=== PATIENT | female | born 1960 | race Caucasian/White ===

== ENCOUNTER 2023-03-02 12:27 | Inpatient (IN) | payer OTHER ==
[2023-03-02] MEDS ORDERED: NOREPINEPHRINE 8 MG/250 ML-D5W 250 ML ONE (12:31)
[2023-03-02] MEDS ORDERED: fentaNYL 50 mcg/mL 1 mL Vial ONE ×4 (12:31→13:38)
[2023-03-02] MEDS ORDERED: Midazolam HCl 5 mg/ml Vial ONE (12:55)
[2023-03-02 13:04] LABS: #Eosinphils 0.1 thou/uL (0.0-0.7); #Monocytes 0.6 thou/uL (0.11-0.59); #Neutrophils 10.2 thou/uL (1.40-6.50); %Basophils 0.1 % (0.0-1.0); %Eosinophils 0.6 % (0.0-10.0); %Lymphocytes 4.4 % (21.0-51.0); %Monocytes 4.8 % (0.0-10.0); Hematocrit 43.6 % (36.0-47.0); Hemoglobin 13.3 g/dL (12.0-16.0); Mean Corpuscular HGB CONC 30.5 g/dL (32.0-36.0); Mean Corpuscular Hemoglobin 32.8 pg (27.0-31.0); Mean Corpuscular Volume 107.7 fl (78.0-98.0); Mean Platelet Volume 10.6 fL (7.4-10.4); Platelet Count 133 10x3/uL (130-400); RBC Distribution Width 15.4 % (11.5-14.5); Red Blood Cell (RBC) Count 4.05 mill/uL (4.20-5.40); White Blood Cell (WBC) Count 11.5 10x3/uL (4.8-10.8)
[2023-03-02 13:25] LABS: ALT (SGPT) 23 U/L (8-55); AST (SGOT) 28 U/L (5-34); Albumin 4.1 g/dL (3.4-4.8); Alkaline Phosphatase 207 U/L (40-110); Anion Gap 23 mmol/L (10-20); BUN (Urea Nitrogen) 67 mg/dL (9.8-20.1); Bilirubin, Total 0.7 mg/dL (0.2-1.2); Calc. Creatinine Clearance 0 mL/min (70-130); Carbon Dioxide 22 mmol/L (23-31); Chloride 96 mmol/L (98-107); Estimated GFR 5; Globulin 3.6 g/dL (2.4-3.5); Glucose 115 mg/dL (80-115); Magnesium 2.3 mg/dL (1.6-2.6); Potassium 5.8 mmol/L (3.5-5.1); Protein, Total 7.7 g/dL (5.8-8.1); Sodium 135 mmol/L (136-145)
[2023-03-02 13:28] LABS: Troponin I 0.181 ng/mL (< 0.028)
[2023-03-02] MEDS ORDERED: Fentanyl CADD 100 ML IV SCH ×2 (13:30→15:45)
[2023-03-02 13:32] LABS: Bilirubin Negative (Negative); Blood, Urine 2+ (Negative); CAUTI Indications for Culture Fever or rigors; Clarity Extra Turbid (Clear); Glucose, Urine (Dipstick) Normal (Negative); Ketone, Urine Negative (Negative); Leukocyte 500 Leu/uL (Negative); Nitrite Negative (Negative); Protein, Urine (Dipstick) 300 mg/dL (Neg-Trace); Urobilinogen Normal mg/dL (Less than 2); pH, Urine 6.5 (5.0-9.0)
[2023-03-02 13:35] LABS: INR-International Normal Ratio 1.1; Prothrombin Time 14.3 sec (12.0-14.7)
[2023-03-02 13:36] LABS: PTT 34.6 sec (22.9-36.1)
[2023-03-02 13:39] LABS: Bacteria/HPF 2+ HPF (None Seen); WBC/HPF 21-50 HPF (0-3)
[2023-03-02 13:40] LABS: Urine Culture Reflex Yes Yes
[2023-03-02 13:41] LABS: SARS-CoV-2 NAA Rapid Test Not Detected (NotDetected)
[2023-03-02 13:43] LABS: Actual Bicarbonate (HCO3a) 20.2 mEq/L (22-28); Analyzer IN Cardio ER; Base Excess (BEa) -8.7 mEq/L (-2.0 to +3.0); CO2 Tension 56.3 mmHg (35.0-45.0); Calcium, Ionized (arterial) 1.13 mmol/L (1.12-1.30); Carboxyhemoglobin (COHb) 3.1 gm% (0.0-3.0); Hematocrit-ABG 40 % (36.0-47.0); Hemoglobin (Hb) 13.6 g/dL (12.0-16.0)
[2023-03-02 14:20] LABS: O2 Tension (PaO2), arterial 55.3 mmHg (> 80.0); pH, Arterial 7.173 (7.35-7.45)
[2023-03-02 14:21] LABS: ALV-art Gradient 195.175 mmHg (0-20); Potassium - ABG Lab 6.05 mmol/L (3.70-5.30); Puncture Site RRA
[2023-03-02] MEDS ORDERED: Insulin Regular 300 UNITS/3 ML VIAL ONE (14:27)
[2023-03-02] MEDS ORDERED: Calcium Chloride 1 GM/10 ML Abboject SYRINGE ONE (14:27)
[2023-03-02] MEDS ORDERED: Iopamidol-370 76% 500 ML MDV (1 ML CHARGE) ONE (14:30)
[2023-03-02] MEDS ORDERED: Vancomycin 1 GM/200 ML (FROZEN) BAG ONE (14:42)
[2023-03-02] MEDS ORDERED: Dextrose 50% Abboject 50 ML SYRINGE SLOW IVP SCH (14:45)
[2023-03-02] MEDS ORDERED: Sodium Chloride 0.9% 100 ML ONE (14:49)
[2023-03-02] MEDS ORDERED: Piperacillin/Tazobactam 3.375 GM VIAL ONE (14:49)
[2023-03-02] MEDS ORDERED: Oseltamivir 6 MG/ML ORAL SUSP PER TUBE SCH (15:00)
[2023-03-02] MEDS ORDERED: Sodium Bicarb 50 MEQ/50 ML VIAL IVP SCH (15:00)
[2023-03-02] MEDS ORDERED: HumaLOG 300 UNITS/3 ML VIAL SC PRN ×2 (15:18)
[2023-03-02] MEDS ORDERED: Ipratropium/Albuterol 3 ML NEB NEB PRN (15:18)
[2023-03-02] MEDS ORDERED: NOREPINEPHRINE 8 MG/250 ML-D5W 250 ML IVPB PRN (15:18)
[2023-03-02] MEDS ORDERED: Acetaminophen 650 MG Suppository PR PRN (15:18)
[2023-03-02] MEDS ORDERED: Electrolyte Replacement Protocol 1 EACH IVPB ONE (15:18)
[2023-03-02] MEDS ORDERED: Ventilator Sedation Protocol 1 EACH FS SCH (15:30)
[2023-03-02] MEDS ORDERED: Acetaminophen 650 MG Suppository ONE (15:39)
[2023-03-02] MEDS ORDERED: Fentanyl BOLUS 250 ML IVPB PRN (15:45)
[2023-03-02] MEDS ORDERED: Lorazepam 2 MG/ML VIAL SLOW IVP PRN (15:45)
[2023-03-02] MEDS ORDERED: Morphine 2 MG/ML VIAL SLOW IVP PRN (15:45)
[2023-03-02] MEDS ORDERED: DISCONTINUE PREVIOUS NARCOTIC PAIN MEDICATIONS AND BENZODIAZEPINES FS SCH (15:45)
[2023-03-02] MEDS ORDERED: Propofol 1,000 MG/100 ML VIAL IV PRN (15:45)
[2023-03-02] MEDS ORDERED: Propofol BOLUS 1,000 MG/100 ML VIAL IV PRN (15:45)
[2023-03-02] MEDS ORDERED: Piperacillin/Tazobactam 3.375 GM in Sodium Chloride 0.9% 100 ML IVPB SCH (17:15)
[2023-03-02] MEDS: Ipratropium/Albuterol 3 ML NEB NEB SCH ×2 (18:24→22:13)
[2023-03-02] MEDS: methylPREDNISolone Sod Succ 40 MG VIAL IVP SCH (18:24)
[2023-03-02 20:00] LABS: HBSAg Index 0.19 S/CO (0-0.99); Hep B Core Total Ab Non-Reactive (NonReactive); Hep B Surf Ag Non-Reactive S/CO (NonReactive); Hep C IgG Ab Non-Reactive S/CO (NonReactive); Hep C Index 0.19 S/CO (0-0.79)
[2023-03-02 20:01] LABS: Troponin I 0.735 ng/mL (< 0.028)
[2023-03-02 20:11] LABS: Bilirubin Negative (Negative); Blood, Urine Moderate (Negative); Glucose, Urine (Dipstick) Negative (Negative); Ketone, Urine Negative (Negative); Leukocyte Moderate (Negative); Nitrite Negative (Negative); Protein, Urine (Dipstick) 100 mg/dL (Neg-Trace); Urobilinogen 0.2 mg/dL (Less than 2)
[2023-03-02 20:16] LABS: HBSAB Concentration 43.61 mIU/mL; Hep B Surf AB Reactive (NonReactive)
[2023-03-02 20:18] LABS: Clarity Hazy (Clear)
[2023-03-02 20:23] LABS: CAUTI Indications for Culture Fever or rigors; WBC/HPF 21-50 HPF (0-3)
[2023-03-02 20:24] LABS: Squamous Epithelial 0-3 HPF (0-3); Transitional Epithelial 0-3 HPF (None Seen)
[2023-03-02 20:25] LABS: Bacteria/HPF 2+ HPF (None Seen); Yeast-Budding Rare HPF (None Seen)
[2023-03-02 20:26] LABS: Other Microscopic Description Less than 2 mL rec'd
[2023-03-02] MEDS ORDERED: Vancomycin Dialysis Sliding Scale (Wt > 99) FS SCH (20:30)
[2023-03-02] MEDS ORDERED: Famotidine/PF 20 mg/2ml Vial SLOW IVP SCH (21:00)
[2023-03-02] MEDS: Heparin 5,000 UNITS/ML VIAL SC SCH (21:39)
[2023-03-02] MEDS: Piperacillin/Tazobactam 3.375 GM in Sodium Chloride 0.9% 100 ML IVPB SCH (21:39)
[2023-03-03 00:03] LABS: Troponin I 0.887 ng/mL (< 0.028)
[2023-03-03] MEDS: methylPREDNISolone Sod Succ 40 MG VIAL IVP SCH ×5 (01:29→23:51)
[2023-03-03] MEDS ORDERED: Vancomycin (BATCH) 1.75 GM in Premix 1 BAG IVPB SCH (02:00)
[2023-03-03] MEDS: Ipratropium/Albuterol 3 ML NEB NEB SCH ×6 (02:19→22:00)
[2023-03-03 06:38] LABS: #Monocytes 0.5 thou/uL (0.11-0.59); #Neutrophils 6.1 thou/uL (1.40-6.50); %Basophils 0.3 % (0.0-1.0); %Eosinophils 0.1 % (0.0-10.0); %Lymphocytes 9.2 % (21.0-51.0); %Monocytes 6.8 % (0.0-10.0); %Neutrophils 83.2 % (42.0-75.0); Hemoglobin 12.2 g/dL (12.0-16.0); Mean Corpuscular Hemoglobin 32.7 pg (27.0-31.0); Mean Platelet Volume 10.4 fL (7.4-10.4); Platelet Count 132 10x3/uL (130-400); RBC Distribution Width 14.9 % (11.5-14.5); Red Blood Cell (RBC) Count 3.73 mill/uL (4.20-5.40); White Blood Cell (WBC) Count 7.4 10x3/uL (4.8-10.8)
[2023-03-03 06:47] LABS: Mean Corpuscular Volume 99.2 fl (78.0-98.0)
[2023-03-03 07:02] LABS: ALT (SGPT) 22 U/L (8-55); AST (SGOT) 29 U/L (5-34); Albumin 3.5 g/dL (3.4-4.8); Alkaline Phosphatase 169 U/L (40-110); Anion Gap 22 mmol/L (10-20); BUN (Urea Nitrogen) 44 mg/dL (9.8-20.1); Bilirubin, Total 0.7 mg/dL (0.2-1.2); Calc. Creatinine Clearance 16 mL/min (70-130); Calcium 9.2 mg/dL (7.8-10.44); Carbon Dioxide 21 mmol/L (23-31); Chloride 95 mmol/L (98-107); Estimated GFR 8; Globulin 3.2 g/dL (2.4-3.5); Glucose 141 mg/dL (80-115); Potassium 3.7 mmol/L (3.5-5.1); Protein, Total 6.7 g/dL (5.8-8.1); Sodium 134 mmol/L (136-145)
[2023-03-03 07:09] LABS: CO2 Tension 34.9 mmHg (35.0-45.0); Calcium, Ionized (arterial) 1.14 mmol/L (1.12-1.30); Carboxyhemoglobin (COHb) 1.3 gm% (0.0-3.0); Hematocrit-ABG 37 % (36.0-47.0); Hemoglobin (Hb) 12.6 g/dL (12.0-16.0); O2 Tension (PaO2), arterial 124.4 mmHg (> 80.0); Potassium - ABG Lab 3.78 mmol/L (3.70-5.30); pH, Arterial 7.417 (7.35-7.45)
[2023-03-03 07:11] LABS: ALV-art Gradient 117.175 mmHg (0-20); Puncture Site Arterial Line
[2023-03-03 07:11] LABS: Troponin I 0.734 ng/mL (< 0.028)
[2023-03-03] MEDS ORDERED: Albuterol 1.25 MG (3 mL) NEB NEB PRN (07:51)
[2023-03-03] MEDS: Piperacillin/Tazobactam 3.375 GM in Sodium Chloride 0.9% 100 ML IVPB SCH ×2 (08:02→21:02)
[2023-03-03] MEDS: Heparin 5,000 UNITS/ML VIAL SC SCH ×3 (08:04→21:03)
[2023-03-03] MEDS ORDERED: Oseltamivir 75 MG CAP PO SCH (09:00)
[2023-03-03] MEDS ORDERED: Vancomycin 2 GM in Sodium Chloride 0.9% 250 ML 250 ML IVPB SCH (09:00)
[2023-03-03] MEDS ORDERED: Albumin 25% 25 GM (100 mL) BOT IVPB SCH (10:00)
[2023-03-03 13:15] VITALS: BMI 42.7
[2023-03-03] MEDS: Oseltamivir 6 MG/ML ORAL SUSP PER TUBE SCH (17:11)
[2023-03-04] MEDS: Ipratropium/Albuterol 3 ML NEB NEB SCH ×7 (02:07→23:23)
[2023-03-04 05:32] LABS: #Monocytes 0.3 thou/uL (0.11-0.59); #Neutrophils 2.8 thou/uL (1.40-6.50); %Basophils 0.5 % (0.0-1.0); %Eosinophils 0.5 % (0.0-10.0); %Lymphocytes 17.5 % (21.0-51.0); %Monocytes 7.2 % (0.0-10.0); %Neutrophils 73.8 % (42.0-75.0); Hematocrit 32.4 % (36.0-47.0); Hemoglobin 10.4 g/dL (12.0-16.0); Mean Corpuscular HGB CONC 32.1 g/dL (32.0-36.0); Mean Corpuscular Hemoglobin 32.8 pg (27.0-31.0); Mean Platelet Volume 10.6 fL (7.4-10.4); Platelet Count 112 10x3/uL (130-400); RBC Distribution Width 14.6 % (11.5-14.5); Red Blood Cell (RBC) Count 3.17 mill/uL (4.20-5.40); White Blood Cell (WBC) Count 3.8 10x3/uL (4.8-10.8)
[2023-03-04 05:55] LABS: ALT (SGPT) 20 U/L (8-55); AST (SGOT) 25 U/L (5-34); Albumin 3.5 g/dL (3.4-4.8); Alkaline Phosphatase 128 U/L (40-110); Anion Gap 17 mmol/L (10-20); BUN (Urea Nitrogen) 31 mg/dL (9.8-20.1); Bilirubin, Total 0.5 mg/dL (0.2-1.2); Calc. Creatinine Clearance 20 mL/min (70-130); Calcium 9.1 mg/dL (7.8-10.44); Carbon Dioxide 28 mmol/L (23-31); Chloride 97 mmol/L (98-107); Estimated GFR 11; Globulin 3.2 g/dL (2.4-3.5); Glucose 122 mg/dL (80-115); Potassium 4.1 mmol/L (3.5-5.1); Protein, Total 6.7 g/dL (5.8-8.1); Sodium 138 mmol/L (136-145)
[2023-03-04 06:07] LABS: Mean Corpuscular Volume 102.2 fl (78.0-98.0)
[2023-03-04] MEDS: methylPREDNISolone Sod Succ 40 MG VIAL IVP SCH (06:44)
[2023-03-04] MEDS: Piperacillin/Tazobactam 3.375 GM in Sodium Chloride 0.9% 100 ML IVPB SCH (08:23)
[2023-03-04] MEDS: Heparin 5,000 UNITS/ML VIAL SC SCH ×3 (08:23→20:18)
[2023-03-04] MEDS ORDERED: Epoetin (ESRD) 10,000 UNITS/ML VIAL SC SCH (09:15)
[2023-03-04] MEDS ORDERED: EPOETIN ALFA-EPBX (ESRD) 10,000 UNITS/ML VIAL SC SCH (12:00)
[2023-03-04] MEDS: cefTRIAXone\\ROCEPHIN 1 GM in Sodium Chloride 0.9% 100 ML IVPB SCH (20:18)
[2023-03-04] MEDS ORDERED: Famotidine/PF 20 mg/2ml Vial SLOW IVP SCH (21:00)
[2023-03-05] MEDS: Ipratropium/Albuterol 3 ML NEB NEB SCH ×3 (02:57→10:40)
[2023-03-05 06:06] LABS: #Eosinphils 0.2 thou/uL (0.0-0.7); #Monocytes 0.4 thou/uL (0.11-0.59); #Neutrophils 2.6 thou/uL (1.40-6.50); %Basophils 0.5 % (0.0-1.0); %Eosinophils 4.4 % (0.0-10.0); %Monocytes 9.5 % (0.0-10.0); %Neutrophils 60.9 % (42.0-75.0); Hematocrit 34.2 % (36.0-47.0); Hemoglobin 10.8 g/dL (12.0-16.0); Mean Corpuscular HGB CONC 31.6 g/dL (32.0-36.0); Mean Corpuscular Hemoglobin 32.5 pg (27.0-31.0); Mean Platelet Volume 10.1 fL (7.4-10.4); Platelet Count 113 10x3/uL (130-400); RBC Distribution Width 14.6 % (11.5-14.5); Red Blood Cell (RBC) Count 3.32 mill/uL (4.20-5.40); White Blood Cell (WBC) Count 4.3 10x3/uL (4.8-10.8)
[2023-03-05 06:38] LABS: ALT (SGPT) 17 U/L (8-55); AST (SGOT) 24 U/L (5-34); Albumin 3.7 g/dL (3.4-4.8); Alkaline Phosphatase 123 U/L (40-110); Anion Gap 19 mmol/L (10-20); BUN (Urea Nitrogen) 49 mg/dL (9.8-20.1); Bilirubin, Total 0.5 mg/dL (0.2-1.2); Calc. Creatinine Clearance 15 mL/min (70-130); Calcium 8.8 mg/dL (7.8-10.44); Carbon Dioxide 24 mmol/L (23-31); Chloride 98 mmol/L (98-107); Estimated GFR 7; Globulin 3.2 g/dL (2.4-3.5); Glucose 102 mg/dL (80-115); Protein, Total 6.9 g/dL (5.8-8.1); Sodium 137 mmol/L (136-145)
[2023-03-05] MEDS: Heparin 5,000 UNITS/ML VIAL SC SCH ×3 (08:29→19:32)
[2023-03-05] MEDS ORDERED: Heparin 10,000 UNITS/ 10 ML VIAL ONE (08:49)
[2023-03-05 09:39] LABS: Magnesium 2.3 mg/dL (1.6-2.6); Phosphorus 6.7 mg/dL (2.3-4.7)
[2023-03-05] MEDS ORDERED: Albuterol 200 PUFF (6.7GM INHALER) INH PRN (12:58)
[2023-03-05] MEDS ORDERED: FLU VACC QS2023-24(6MOS UP)/PF 60 MCG/0.5 ML SYRINGE IM ONE (12:58)
[2023-03-05] MEDS ORDERED: Meclizine HCl 12.5 MG TAB PO PRN (13:01)
[2023-03-05] MEDS: Benzonatate 100 MG CAP PO PRN ×2 (13:02→19:34)
[2023-03-05] MEDS: predniSONE 20 MG TAB PO SCH (13:02)
[2023-03-05] MEDS: FLU VACC QS2023-24(6MOS UP)/PF 60 MCG/0.5 ML SYRINGE IM ONE ×3 (13:03→13:18)
[2023-03-05] MEDS: Oseltamivir 6 MG/ML ORAL SUSP PER TUBE SCH (16:50)
[2023-03-05] MEDS: Sevelamer Carbonate 800 MG TAB PO SCH (16:51)
[2023-03-05] MEDS ORDERED: Ipratropium Bromide 2.5 ml Neb ONE (19:14)
[2023-03-05] MEDS: Ipratropium Bromide 2.5 ml Neb NEB SCH (19:24)
[2023-03-05] MEDS: cefTRIAXone\\ROCEPHIN 1 GM in Sodium Chloride 0.9% 100 ML IVPB SCH (19:32)
[2023-03-05] MEDS: Gabapentin 300 MG CAP PO SCH (19:33)
[2023-03-05] MEDS ORDERED: Phenytoin Extended Release 100 MG CAP PO SCH (21:00)
[2023-03-05] MEDS ORDERED: Atorvastatin Calcium 10 MG TAB PO SCH (21:00)
[2023-03-06] MEDS: Ipratropium Bromide 2.5 ml Neb NEB SCH ×3 (00:48→12:18)
[2023-03-06 05:53] LABS: Hematocrit 35.6 % (36.0-47.0); Hemoglobin 11.2 g/dL (12.0-16.0); Mean Corpuscular HGB CONC 31.5 g/dL (32.0-36.0); Mean Corpuscular Hemoglobin 32.6 pg (27.0-31.0); Mean Corpuscular Volume 103.5 fl (78.0-98.0); Mean Platelet Volume 9.7 fL (7.4-10.4); Platelet Count 119 10x3/uL (130-400); RBC Distribution Width 14.4 % (11.5-14.5); Red Blood Cell (RBC) Count 3.44 mill/uL (4.20-5.40); White Blood Cell (WBC) Count 3.2 10x3/uL (4.8-10.8)
[2023-03-06 06:10] LABS: Delete Auto Diff?? YES; Manual Diff?? YES
[2023-03-06 06:34] LABS: ALT (SGPT) 15 U/L (8-55); AST (SGOT) 19 U/L (5-34); Albumin 3.7 g/dL (3.4-4.8); Alkaline Phosphatase 119 U/L (40-110); Anion Gap 16 mmol/L (10-20); BUN (Urea Nitrogen) 29 mg/dL (9.8-20.1); Bilirubin, Total 0.5 mg/dL (0.2-1.2); Calc. Creatinine Clearance 21 mL/min (70-130); Calcium 8.9 mg/dL (7.8-10.44); Carbon Dioxide 26 mmol/L (23-31); Chloride 99 mmol/L (98-107); Estimated GFR 10; Globulin 3.1 g/dL (2.4-3.5); Glucose 104 mg/dL (80-115); Magnesium 2.1 mg/dL (1.6-2.6); Potassium 3.6 mmol/L (3.5-5.1); Protein, Total 6.8 g/dL (5.8-8.1); Sodium 137 mmol/L (136-145)
[2023-03-06 07:35] LABS: Band 2 % (5-11); CellaVision Operator ID LAB.MJL; Eosinophils 1 % (0-10); Lymphocytes 32 % (21-51); Macrocytosis SLIGHT = 6-15 cells HPF (0-5); Monocytes 7 % (0-10); Neutrophil 58 % (42-75); Ovalocytes SLIGHT = 2-5 cells HPF (0-1); Platelet Adequacy Comment Platelets Decreased; Polychromasia SLIGHT = 2-3 cells HPF (0-2); Tear Drops SLIGHT = 2-5 cells HPF (0-1); Total Cell Count 101
[2023-03-06 07:40] VITALS: BP 133/76; TEMP 98.4
[2023-03-06] MEDS ORDERED: Folic Acid/Vit B Comp W-C PO SCH (09:00)
[2023-03-06] MEDS ORDERED: Montelukast Sodium 10 mg Tablet PO SCH (09:00)
[2023-03-06] MEDS ORDERED: Cefdinir 300 MG CAP PO SCH (09:00)
[2023-03-06] MEDS: Heparin 5,000 UNITS/ML VIAL SC SCH (10:00)
[2023-03-06] MEDS: Sevelamer Carbonate 800 MG TAB PO SCH ×3 (10:00→13:43)
[2023-03-06] MEDS: Gabapentin 300 MG CAP PO SCH (10:00)
[2023-03-06] MEDS: predniSONE 20 MG TAB PO SCH (10:00)
[2023-03-06] MEDS ORDERED: Loperamide HCl 2 MG CAP PO SCH (10:28)
[2023-03-06] MEDS ORDERED: Diphenoxylate HCl/Atropine Tablet PO SCH (10:45)
== END 2023-03-06 15:00 | disposition home health service (06) | DRG 871 ==
LOC: ERS 12:27 → CCU 17:38 → T4-A 03-04 11:12
PROVIDERS: ADMIT Family Medicine; ATTEND Family Medicine
PROC: 5A1D70Z Performance of Urinary Filtration, Intermittent, Less than 6 Hours Per Day (ICD-10-PCS; principal; 2023-03-02)
PROC: 03HY32Z Insertion of Monitoring Device into Upper Artery, Percutaneous Approach (ICD-10-PCS; 2023-03-02)
PROC: 4A133R1 Monitoring of Arterial Saturation, Peripheral, Percutaneous Approach (ICD-10-PCS; 2023-03-02)
PROC: 3E03329 Introduction of Other Anti-infective into Peripheral Vein, Percutaneous Approach (ICD-10-PCS; 2023-03-02)
PROC: 3E033XZ Introduction of Vasopressor into Peripheral Vein, Percutaneous Approach (ICD-10-PCS; 2023-03-02)
PROC: 0BH17EZ Insertion of Endotracheal Airway into Trachea, Via Natural or Artificial Opening (ICD-10-PCS; 2023-03-02)
PROC: 5A1945Z Respiratory Ventilation, 24-96 Consecutive Hours (ICD-10-PCS; 2023-03-02)
PROC: 30233J1 Transfusion of Nonautologous Serum Albumin into Peripheral Vein, Percutaneous Approach (ICD-10-PCS; 2023-03-03)
PROC: 5A0945A Assistance with Respiratory Ventilation, 24-96 Consecutive Hours, High Flow/Velocity Cannula (ICD-10-PCS; 2023-03-03)
DX: A41.89 Other specified sepsis (principal); I50.33 Acute on chronic diastolic (congestive) heart failure; J18.9 Pneumonia, unspecified organism; J96.01 Acute respiratory failure with hypoxia; N18.6 End stage renal disease; I13.2 Hypertensive heart and chronic kidney disease with heart failure and with stage 5 chronic kidney disease, or end stage renal disease; I69.354 Hemiplegia and hemiparesis following cerebral infarction affecting left non-dominant side; I24.89 Other forms of acute ischemic heart disease; J44.1 Chronic obstructive pulmonary disease with (acute) exacerbation; N39.0 Urinary tract infection, site not specified; Z51.5 Encounter for palliative care; Z66 Do not resuscitate; E11.22 Type 2 diabetes mellitus with diabetic chronic kidney disease; E11.40 Type 2 diabetes mellitus with diabetic neuropathy, unspecified; E78.5 Hyperlipidemia, unspecified; K21.9 Gastro-esophageal reflux disease without esophagitis; F19.10 Other psychoactive substance abuse, uncomplicated; F17.210 Nicotine dependence, cigarettes, uncomplicated; J10.1 Influenza due to other identified influenza virus with other respiratory manifestations; E87.5 Hyperkalemia; R79.89 Other specified abnormal findings of blood chemistry; D63.1 Anemia in chronic kidney disease; Z79.899 Other long term (current) drug therapy; Z79.4 Long term (current) use of insulin; Z88.5 Allergy status to narcotic agent; Z91.013 Allergy to seafood; Z98.891 History of uterine scar from previous surgery; Z98.890 Other specified postprocedural states; Z11.52 Encounter for screening for COVID-19; Z82.49 Family history of ischemic heart disease and other diseases of the circulatory system; Z83.3 Family history of diabetes mellitus; Z99.2 Dependence on renal dialysis
CPT/HCPCS: 31500; 36415; 36416; 36556; 36600; 51701; 70450; 71045; 71275; 80053; 81001; 82805; 83605; 83735; 83880; 84100; 84145; 84484; 85025; 85610; 85730; 86704; 87040; 87077; 87086; 87186; 90935; 93005; 93010; 94002; 94003; 94640; 96365; 96366; 96368; 96375; G0257; J0696; J1644; J1815; J2060; J2250; J2543; J2920; J3010; J3370; J3370-JW; J3490; J7512; J7620; J7999; P9047; Q5105; Q9967; S0028

== ENCOUNTER 2023-10-12 14:20 | Emergency (ER) | payer OTHER ==
[2023-10-12 14:47] LABS: #Basophils Less than 0.03 10x3/uL (0.0-0.2); %Basophils 0.1 % (0.0-1.0); %Eosinophils 1.3 % (0.0-10.0); %Lymphocytes 9.8 % (21.0-51.0); %Monocytes 5.2 % (0.0-10.0); %Neutrophils 82.4 % (42.0-75.0); Hematocrit 34.2 % (36.0-47.0); Hemoglobin 10.6 g/dL (12.0-16.0); Mean Corpuscular Hemoglobin 33.3 pg (27.0-31.0); Mean Corpuscular Volume 107.5 fL (78.0-98.0); Mean Platelet Volume 10.3 fL (7.4-10.4); Platelet Count 161 10x3/uL (130-400); RBC Distribution Width 17.1 % (11.5-14.5); Red Blood Cell (RBC) Count 3.18 mill/uL (4.20-5.40)
[2023-10-12 15:02] LABS: ALT (SGPT) 19 U/L (8-55); AST (SGOT) 16 U/L (5-34); Albumin 3.5 g/dL (3.4-4.8); Alkaline Phosphatase 269 U/L (40-110); Anion Gap 25 mmol/L (10-20); BUN (Urea Nitrogen) 100 mg/dL (9.8-20.1); Bilirubin, Total 0.5 mg/dL (0.2-1.2); Calc. Creatinine Clearance 0 mL/min (70-130); Carbon Dioxide 19 mmol/L (23-31); Chloride 104 mmol/L (98-107); Estimated GFR 3; Globulin 3.8 g/dL (2.4-3.5); Glucose 202 mg/dL (80-115); Potassium 5.8 mmol/L (3.5-5.1); Protein, Total 7.3 g/dL (5.8-8.1); Sodium 142 mmol/L (136-145)
[2023-10-12 15:39] LABS: Troponin I 0.133 ng/mL (< 0.028)
[2023-10-12 15:41] LABS: Actual Bicarbonate (HCO3v) 17.1 mEq/L (22-28); Analyzer IN Cardio ER; Calcium, Ionized (venous) 1.13 mmol/L (1.16-1.32); Chloride (VBG) 101 mmol/L (98-106); Hematocrit-VBG 35 % (36.0-47.0); Hemoglobin (Hb) 11.9 g/dL (11.7-16.0); Potassium (VBG) 5.62 mmol/L (3.70-5.30); Sodium 140 mmol/L (133-146)
[2023-10-12] MEDS ORDERED: Heparin 10,000 UNITS/ 10 ML VIAL ONE (15:52)
[2023-10-12] MEDS ORDERED: Epoetin (ESRD) 20,000 UNITS/ML MDV SC SCH (16:45)
[2023-10-12] MEDS ORDERED: Phenytoin Extended Release 100 MG CAP ONE (20:26)
[2023-10-13 08:01] LABS: pH (venous) 7.177 (7.32-7.43)
== END 2023-10-12 23:29 | disposition short-term general hospital (02) ==
LOC: ERS 14:20
DX: E87.70 Fluid overload, unspecified (principal); E87.5 Hyperkalemia; N18.6 End stage renal disease; F17.210 Nicotine dependence, cigarettes, uncomplicated; J44.89 Other specified chronic obstructive pulmonary disease; Z99.2 Dependence on renal dialysis; Z86.73 Personal history of transient ischemic attack (TIA), and cerebral infarction without residual deficits
CPT/HCPCS: 71045; 80053; 82805; 83880; 84484; 85025; 87040; 90935; 93005; 94660; G0257; J1644